=== PATIENT | female | born 1995 ===

== ENCOUNTER 2024-08-07 13:24 | Emergency (ER) | payer SELFPAY ==
[2024-08-07 14:22] VITALS: BP 139/68; PULSE 80; RESP 18; TEMP 36.7; O2SAT 100
== END 2024-08-07 19:15 | disposition left against medical advice (07) ==
DX: Z53.21 Procedure and treatment not carried out due to patient leaving prior to being seen by health care provider (principal)
CPT/HCPCS: 99199